=== PATIENT | male | born 1960 | race Hispanic/Latino ===

== ENCOUNTER 2020-12-30 08:04 | Day surgery (SDC) | payer MEDICARE ==
[2020-12-24 12:01] LABS: BASOPHILS % (AUTO) 0.6 % (0.0-5.0); EOSINOPHILS % (AUTO) 1.9 % (0.0-8.0); HEMATOCRIT 41.1 % (42-54); LYMPHOCYTES % (AUTO) 27.2 % (21.0-51.0); MEAN CORPUSCULAR HEMOGLOBIN 31.8 pg (27.0-33.0); MEAN CORPUSCULAR HGB CONC 34.3 g/dL (32.0-36.0); MEAN CORPUSCULAR VOLUME 92.6 fL (79-99); MONOCYTES % (AUTO) 10.8 % (3.0-13.0); NEUTROPHILS % (AUTO) 59.3 % (40.0-77.0); PLATELET COUNT (AUTO) 273 K/uL (130-400); RED BLOOD CELL COUNT(AUTO) 4.44 MIL/uL (4.50-6.20); RED CELL DISTRIBUTION WIDTH 13.9 % (11.0-15.5); WHITE BLOOD COUNT (AUTO) 6.2 K/uL (4.8-10.8)
[2020-12-24 12:13] LABS: APPEARANCE,URINE Clear (CLEAR); BILIRUBIN,URINE Negative (NEGATIVE); COLOR,URINE Yellow (YELLOW); GLUCOSE, URINE (UA) Negative (NEGATIVE); KETONES,URINE Negative (NEGATIVE); LEUKOCYTE ESTERASE ,URINE Negative (NEGATIVE); NITRATE,URINE Negative (NEGATIVE); OCCULT BLOOD,URINE Negative (NEGATIVE); PH,URINE 6.5 (5.0-8.0); POTASSIUM 3.8 mmol/L (3.5-5.1); PROTEIN,URINE Negative (NEGATIVE)
[2020-12-24 12:14] LABS: INR 0.95 (0.85-1.15); PROTHROMBIN TIME 10.4 SEC (9.6-11.6)
[2020-12-24 12:16] LABS: PARTIAL THROMBOPLASTIN TIME 26.7 SEC (26.3-35.5)
[2020-12-29 12:14] VITALS: BP 137/73
[2020-12-30] VITALS (18 sets, daily range): BP systolic 117–161; BP diastolic 70–103
[~2020-12-30] VITALS: Ht 180.3 cm; Wt 89.5 kg
[~2020-12-30 08:04] MED LIST: LEVO500T89 PO; LOSA50TA64 PO; PHARMACY COMMUNICATION MISC SCH; TAMS-1 PO
[2020-12-30] MEDS ORDERED: PROPOFOL 10 MG/ML 20ML VIAL IV ONE (08:50)
[2020-12-30] MEDS ORDERED: MIDAZOLAM HCL 1 MG/ML 2ML VIAL ONE (08:50)
[2020-12-30] MEDS ORDERED: SUCCINYLCHOLINE 200MG/10ML SYR ONE (08:50)
[2020-12-30] MEDS ORDERED: FENTANYL CITRATE PF 50 MCG/1 ML 2ML VIAL ONE (08:50)
[2020-12-30] MEDS ORDERED: LIDOCAINE HCL MPF 1% 5ML VIAL ONE (08:50)
[2020-12-30] MEDS ORDERED: ROCURONIUM 10MG/1ML SYR 10 MG/ML ML ONE (08:50)
[2020-12-30] MEDS: CEFTRIAXONE 1G VIAL IVP ONE ×2 (08:59→09:38)
[2020-12-30] MEDS ORDERED: [UNRECOGNIZED DRUG - OTHER] IV SCH (09:00)
[2020-12-30] MEDS ORDERED: GENTAMICIN SULFATE IV SCH (09:00)
[2020-12-30] MEDS ORDERED: LACTATED RINGERS 1000ML 1,000 ML IV ONE (09:30)
[2020-12-30] MEDS ORDERED: SUGAMMADEX SODIUM 200 MG/2 ML VIAL IV ONE (09:43)
[2020-12-30] MEDS ORDERED: GLYCOPYRROLATE 1 MG/5 ML SYRINGE ONE (11:04)
[2020-12-30] MEDS ORDERED: MEPERIDINE-PF 25 MG/ML SYG ONE (11:45)
[2020-12-30] MEDS ORDERED: OPIUM/BELLADONNA ALKALOIDS 1 EACH SUPP.RECT RC ONE (13:25)
== END 2020-12-30 14:20 | disposition home or self-care (01) ==
LOC: DAH 08:04
PROVIDERS: ATTEND Urology
DX: N40.1 Benign prostatic hyperplasia with lower urinary tract symptoms (principal); Z20.822 Contact with and (suspected) exposure to COVID-19; R33.8 Other retention of urine; N32.89 Other specified disorders of bladder; I10 Essential (primary) hypertension; E66.9 Obesity, unspecified; Z79.01 Long term (current) use of anticoagulants; Z79.899 Other long term (current) drug therapy; Z82.49 Family history of ischemic heart disease and other diseases of the circulatory system; Z98.890 Other specified postprocedural states; Z87.440 Personal history of urinary (tract) infections
CPT/HCPCS: 36415; 52648; 71045; 80048; 81003; 85025; 85610; 85730; 87088; 87635; 93005; A4215; A4221; A4222; A4223; A4335; A4354; A4358 ×2; A4554; A4600; A4663; A4930; A5113; A6260; C9803; J0330; J0696; J1580; J2175; J2250; J2704; J3010; J3490 ×2; J7030; J7120 ×2

== ENCOUNTER 2021-01-01 03:23 | Observation (INO) | payer MEDICARE ==
[~2021-01-01] VITALS: Ht 180.3 cm; Wt 88.0 kg
[~2021-01-01 03:23] MED LIST changes: -PHARMACY COMMUNICATION MISC SCH
[2021-01-01] MEDS ORDERED: 0.9%NACL 1000ML 1,000 ML IV ONE (03:56)
[2021-01-01] MEDS ORDERED: ACETAMINOPHEN 500 MG TABLET PO ONE (04:00)
[2021-01-01] MEDS ORDERED: ONDANSETRON 4MG INJ IVP ONE (04:00)
[2021-01-01] MEDS ORDERED: MORPHINE 4 MG SYG IV ONE ×2 (04:00→22:00)
[2021-01-01 04:01] LABS: BASOPHILS % (AUTO) 0.3 % (0.0-5.0); EOSINOPHILS % (AUTO) 0.4 % (0.0-8.0); LYMPHOCYTES % (AUTO) 17.6 % (21.0-51.0); MEAN CORPUSCULAR HEMOGLOBIN 31.6 pg (27.0-33.0); MEAN CORPUSCULAR HGB CONC 34.6 g/dL (32.0-36.0); MEAN CORPUSCULAR VOLUME 91.4 fL (79-99); MONOCYTES % (AUTO) 8.8 % (3.0-13.0); NEUTROPHILS % (AUTO) 72.5 % (40.0-77.0); PLATELET COUNT (AUTO) 202 K/uL (130-400); RED BLOOD CELL COUNT(AUTO) 4.05 MIL/uL (4.50-6.20); RED CELL DISTRIBUTION WIDTH 14.4 % (11.0-15.5); WHITE BLOOD COUNT (AUTO) 13.7 K/uL (4.8-10.8)
[2021-01-01] MEDS ORDERED: ONDANSETRON 4MG INJ ONE (04:03)
[2021-01-01] MEDS ORDERED: MORPHINE 4 MG SYG ONE ×2 (04:03→22:00)
[2021-01-01 04:10] LABS: CREATININE 1.3 mg/dL (0.5-1.5); POTASSIUM 3.9 mmol/L (3.5-5.1)
[2021-01-01 04:14] LABS: ALBUMIN 3.1 g/dL (3.5-5.0); BILIRUBIN,TOTAL 1.1 mg/dL (0.2-1.0); TOTAL PROTEIN, SERUM 6.5 g/dL (6.0-8.3)
[2021-01-01 04:17] LABS: B-TYPE NATRIURETIC PEPTIDE 26 pg/mL (0-100)
[2021-01-01 05:53] LABS: BILIRUBIN,URINE Negative (NEGATIVE); COLOR,URINE Yellow (YELLOW); GLUCOSE, URINE (UA) Negative (NEGATIVE); KETONES,URINE Trace mg/dL (NEGATIVE); LEUKOCYTE ESTERASE ,URINE Moderate (NEGATIVE); NITRATE,URINE Negative (NEGATIVE); OCCULT BLOOD,URINE Large (NEGATIVE); PH,URINE 5.5 (5.0-8.0); PROTEIN,URINE POS 2+ mg/dL (NEGATIVE)
[2021-01-01 06:08] LABS: APPEARANCE,URINE SLIGHTLY CLOUDY (CLEAR)
[2021-01-01 06:10] LABS: BACTERIA,URINE Few /HPF (None Seen); SQUAMOUS EPITHELIAL CELL,UR 0-2 /HPF (0-2)
[2021-01-01] MEDS ORDERED: CEFTRIAXONE 1G VIAL IVP SCH (06:30)
[2021-01-01] MEDS ORDERED: OPIUM/BELLADONNA ALKALOIDS 1 EACH SUPP.RECT RC SCH (07:00)
[2021-01-01] MEDS ORDERED: LEVOFLOXACIN 500 MG/D5W 100 ML 100 ML IV SCH (07:30)
[2021-01-01] MEDS ORDERED: MAG/ALUM/SIMETH 30 ML UDCUP PO PRN (07:30)
[2021-01-01] MEDS ORDERED: ONDANSETRON 4MG INJ IV PRN (07:30)
[2021-01-01] MEDS ORDERED: ACETAMINOPHEN 325 MG TAB PO PRN ×2 (07:30)
[2021-01-01] MEDS ORDERED: NITROGLYCERIN 0.4 MG SL TAB SL PRN (07:30)
[2021-01-01] MEDS: LACTATED RINGERS 1000ML 1,000 ML IV SCH ×2 (08:13→22:54)
[2021-01-01] MEDS: FAMOTIDINE 20MG TAB PO SCH ×2 (08:13→19:45)
[2021-01-01] MEDS ORDERED: OPIUM/BELLADONNA ALKALOIDS 1 EACH SUPP.RECT RC PRN (10:30)
[2021-01-01] MEDS ORDERED: ZOSYN 3.375GM+NS 50ML 3.38 GM in 0.9%NACL 50ML 50 ML IV SCH (10:30)
[2021-01-01 11:07] VITALS: BP 132/70
[2021-01-01] MEDS: ZOSYN 3.375GM+NS 50ML 50 ML IV SCH ×2 (11:50→18:14)
[2021-01-01 15:37] VITALS: BP 122/64
[2021-01-01 20:00] VITALS: BP 112/68
[2021-01-01 23:48] VITALS: BP 107/62
[2021-01-02] MEDS: ZOSYN 3.375GM+NS 50ML 50 ML IV SCH ×3 (02:43→20:10)
[2021-01-02 04:00] VITALS: BP 106/55
[2021-01-02 07:40] VITALS: BP 112/60
[2021-01-02] MEDS: FAMOTIDINE 20MG TAB PO SCH ×2 (08:49→20:10)
[2021-01-02 10:52] VITALS: BP 109/66
[2021-01-02] MEDS: LACTATED RINGERS 1000ML 1,000 ML IV SCH (14:32)
[2021-01-02 16:00] VITALS: BP 116/78
[2021-01-02] MEDS ORDERED: LACTULOSE 20 GM/30 ML UDCUP PO ONE (16:30)
[2021-01-02 20:17] VITALS: BP 118/68
[2021-01-02] MEDS ORDERED: OPIUM/BELLADONNA ALKALOIDS 1 EACH SUPP.RECT RC SCH (23:00)
[2021-01-02] MEDS ORDERED: MORPHINE 2 MG SYG IVP ONE (23:00)
[2021-01-02 23:43] VITALS: BP 135/73
[2021-01-03] MEDS: ZOSYN 3.375GM+NS 50ML 50 ML IV SCH (03:49)
[2021-01-03 04:07] VITALS: BP 108/63
[2021-01-03 07:41] VITALS: BP 114/71
[2021-01-03] MEDS: FAMOTIDINE 20MG TAB PO SCH (08:57)
[2021-01-03] MEDS: LACTATED RINGERS 1000ML 1,000 ML IV SCH (08:57)
== END 2021-01-03 12:30 | disposition home or self-care (01) ==
LOC: EDH 03:23 → EDHIP 07:19 → 3BH 09:34
PROVIDERS: ADMIT Internal Medicine; ATTEND Internal Medicine
DX: T83.091A Other mechanical complication of indwelling urethral catheter, initial encounter (principal); Z20.822 Contact with and (suspected) exposure to COVID-19; N39.0 Urinary tract infection, site not specified; D72.829 Elevated white blood cell count, unspecified; N40.1 Benign prostatic hyperplasia with lower urinary tract symptoms; N13.8 Other obstructive and reflux uropathy; N32.89 Other specified disorders of bladder; N48.89 Other specified disorders of penis; I10 Essential (primary) hypertension; E11.9 Type 2 diabetes mellitus without complications; J44.9 Chronic obstructive pulmonary disease, unspecified; R11.2 Nausea with vomiting, unspecified; Y73.8 Miscellaneous gastroenterology and urology devices associated with adverse incidents, not elsewhere classified; Z79.899 Other long term (current) drug therapy
CPT/HCPCS: 36415; 74176; 76857; 80053; 81001; 82550; 83605; 83880; 84145; 84484; 85025; 87040 ×2; 87088; 87635; 93005; 96361 ×3; 96365; 96366 ×5; 96368; 96375; 99285; C9803; G0378 ×53; J0696; J1956; J2270 ×2; J2405; J2543 ×6; J7030; J7120 ×2